=== PATIENT | male | born 1940 | race Hispanic/Latino ===

== ENCOUNTER 2019-09-05 13:29 | Emergency (ER) | payer MEDICARE ==
[~2019-09-05 13:29] MED LIST: CALCIUM PO; FINASTERIDE5 MG PO; FISH OIL PO; FLOMAX0.4 MG PO; GLUCOSAMINE1000 MG PO; VIT E PO
== END 2019-09-05 14:45 | disposition home or self-care (01) ==
LOC: ER 13:29
DX: S80.222A Blister (nonthermal), left knee, initial encounter (principal); Z96.652 Presence of left artificial knee joint
CPT/HCPCS: 99282

== ENCOUNTER → 2019-09-08 | Outpatient (CLI) | payer MEDICARE | LOC: RAD 15:03 | PROVIDERS: ATTEND Specialist | DX: R22.42 Localized swelling, mass and lump, left lower limb (principal) | CPT/HCPCS: 93971 ==

== ENCOUNTER → 2019-12-25 | Day surgery (SDC) | payer MEDICARE, OTHER ==
[2019-12-22 12:59] LABS: BASOPHILS % 0.4 % (0.0-1.0); EOSINOPHILS # (AUTO) 0.2 (0.0-0.4); EOSINOPHILS % 4.6 % (0.0-6.0); HEMATOCRIT 38.2 % (38.2-49.6); HEMOGLOBIN 13.2 g/dL (14.0-18.0); LYMPHOCYTES # (AUTO) 1.5 (1.0-3.2); LYMPHOCYTES % 32.7 % (18.0-39.1); MEAN CORPUSCULAR HEMOGLOBIN 33.2 pg (28-32); MEAN CORPUSCULAR HGB CONC 34.6 g/dL (31-35); MONOCYTES # (AUTO) 0.5 (0.2-0.8); MONOCYTES % 10.8 % (4.4-11.3); NEUTROPHILS # (AUTO) 2.3 (2.1-6.9); NEUTROPHILS % 51.3 % (38.7-80.0); PLATELET COUNT 137 x10e3/uL (140-360); RED BLOOD COUNT 3.98 x10e6/uL (4.3-5.7); RED CELL DISTRIBUTION WIDTH 13.2 % (11.7-14.4)
[~2019-12-25] MED LIST changes: +ASPIR 8181 MG PO; +HYOSCYAMINE 0.125 MG TAB ONE; +LIDOCAINE HCL 2% LOCAL INJ 5 ML SDV VIAL INJ ONE; +MIDAZOLAM HCL 2 MG/2 ML VIAL ONE; +PROPOFOL IV EMULSION 10 MG/ML 20 ML VIAL ONE; +VIT B12 PO; +VIT D3 PO
--- NOTE | 2019-12-25 08:52 | Operative Report ---
DATE OF PROCEDURE: 12/25/2019 SURGEON: Pancho Singer MD INDICATION FOR COLONOSCOPY: Surveillance colonoscopy, personal history of colon polyps. MEDICATIONS: The patient was done under MAC. Please see anesthesiologist's note. PROCEDURE IN DETAIL: With the patient in left lateral decubitus position, a flexible fiberoptic Olympus colonoscope was inserted into the rectum with ease and advanced all the way to the cecum. The scope was then withdrawn slowly. Mucosa overlying the cecum appeared to be within normal limits. Diverticular disease was noted to involve the ascending colon. Transverse, descending, sigmoid and rectum appeared to be within normal limits. The scope was then retroflexed into the distal rectum and small internal hemorrhoids were noted, none of which was actively bleeding. The scope was then straightened out, it was subsequently withdrawn. The patient tolerated the procedure well. IMPRESSION: 1. Diverticulosis, ascending colon. 2. Internal hemorrhoids, none actively bleeding. PLAN: Initiate high-fiber, low-fat diet. Initiate high-fiber supplement. The patient might benefit from a followup colonoscopy in 3 to 5 years. If no polyps on next colonoscopy, then no additional colonoscopy is needed to this patient. Pancho Singer MD [facility]/MER /[id number] cc: Pito Chapman MD
[2019-12-25 08:55] VITALS: BP 150/83
--- OUTSIDE RECORDS SUMMARY | 2019-12-25 10:35 | XMS REPORT | Continuity of Care Document ---
Author Author Kalpana Washburn [facility] [place] Address Unknown Phone Unavailable Care Team Providers Care Landscape Architect And Planner Name Role Phone [employer] Unavailable Un available Problems Problem Status Onset Date Classification Date Reported Comments Source M79.642 Active 12/03/2018 [facility] 831.0 - DISLOCAT SHOULD Active 05/31/2012 [facility] Medications No Data Provided for This Section Allergies, Adverse Reactions, Alerts No Known Medication Allergies Immunizations No Data Provided for This Section Results No Data Provided for This Section Pathology Reports No Data Provided for This Section Diagnostic Reports Report Value Date Source Knee 3 Views Bilateral DX CLIN ICAL INDICATION: - M25.561 Pain in right knee, M25.562 Pain in left knee COMPARISON: None. FINDINGS: The 3 views of the left knee show normal alignment without acute fracture or dislocation. Moderate to severe degenerative change is noted. There are no definite loose bodies. There is no joint effusion. There are no radiopaque foreign bodies. Vascular calcifications are noted. The 3 views of the right knee show normal alignment without acute fracture or dislocation. There is no joint effusion. There are no radiopaque foreign bodies. Moderate to severe degenerative change is seen, greatest in the medial compartment. Loose bodies seen posteriorly measuring 1.3 cm in greatest dimension. Vascular calcifications are seen. If there is further concern, recommend follow-up radiographs or MRI for complete assessment. IMPRESSION: No acute fracture or dislocation. Moderate to severe degenerative change. SL: TARIK 12/03/2018 [facility] Hand 2 views Bilateral DX Hand 2 views Bilateral DX CLINICAL HISTORY: - M79.642 Pain in left hand, M79.641 Pain in right hand FINDINGS: 3 views of the right hand and 3 views of left hand are submitted for review. There is no evidence for fracture or subluxation. There is decrease in joint space height in the interphalangeal joints, metacarpophalangeal joints and at the radiocarpal joint. Changes are worse in the right hand as compared to the left hand. There is mild radial subluxation at the DIP joint of the right 2nd digit. No definite erosions are visualized. Visualized bones demonstrate normal radiodensity. Vascular calcifications. 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 SL: [id number] 12/03/2018 [facility] Foot series DX Right Foot x-ra y series History: 75-year-old with right foot pain. Comparison: None. Findings: 1st MTP hallux morphology with narrowing of the joint space. The 1st MTP sesamoids are remodeled with marginal osteophytes. There is no fracture or acute bony injury. The meta tarsals appear intact. The midtarsal bones are unremarkable. The plantar arch is maintained. The calcaneus has a small inferior enthesopathy. The hindfoot is normal. Heavy atherosclerotic calcifications of the dorsalis pedis and posterior tibial arteries noted. Impression: No acute bone injury. 1st MTP hallux valgus morphology with os teoarthritic changes at MTP joint and interphalangeal joints. 12/08/2015 JANNA Ortiz Consultation Notes No Data Provided for This Section Discharge Summaries No Data Provided for This Section History and Physicals No Data Provided for This Section Vital Signs No Data Provided for This Section Encounters Location Location Details Encounter Type Encounter Number Reason For Visit Attending Provider ADM Date DC Date Status Source OD [id number] 831.0 - DISLOCAT SHOULD JACOB JUAREZ 05/31/2012 Active JANNA Ortiz [facility] [place] [facility] [id number] Jacob Juarez 12/08/2015 12/09/2015 JANNA Ortiz [facility] Outpatient [id number] Kristin Best 12/03/2018 12/04/2018 [facility] Procedures No Data Provided for This Section Assessment and Plan No Data Provided for This Section Plan of Care No Data Provided for This Section Social History Social History Date Source No data available for this section 12/04/2018 [facility] No data available for this section 12/09/2015 JANNA Ortiz Family History No Data Provided for This Section Advance Directives No Data Provided for This Section Functional Status No Data Provided for This Section
--- OUTSIDE RECORDS SUMMARY | 2019-12-25 10:35 | XMS REPORT | Summary of Care ---
Author Author [facility] Organization [facility] Address Unknown Phone Unavailable Encounter HQ Encntr_alivimal(FIN) [id number] Date(s): 12/03/18 - 12/03/18 [facility] [address] [place] [address]- [phone] Discharge Disposition: Home or Self Care Attending Physician: Kristin Best MD Vital Signs No data available for this section Problem List No data available for this section Allergies, Adverse Reactions, Alerts No data available for this section Medications No data available for this section Results No data available for this section Immunizations No data available for this section Procedures No data available for this section Social History No data available for this section Assessment and Plan No data available for this section
--- OUTSIDE RECORDS SUMMARY | 2019-12-25 10:35 | XMS REPORT ---
Author Author [facility] t Organization [facility] Address [address] [place] [address] Phone Unavailable Care Team Providers Care Rubber Stamp Die Inspector Name Role Phone JM SMITH, KINGSLEY PCP VALERIE JADE Attphys Unavailable Lakesha Best Attphys Alessia Juarez Attphys VALERIE JADE Admphyantonia Unavailable Payers Payer Name Policy Type Policy Number Effective Date Expiration Date [facility] [id number] 2019 00:00:00 [facility] Problems Condition Name Condition Details Condition Category Status Onset Date Resolution Date Last Treatment Date Treating Clinician Comments Source M79.642 M79. 642 Active 12/03/2018 [facility] Diagnosis Active 2018-12-03 13:37:00 2018-12-04 06:51:00 [facility] 831.0 - DISLOCAT SHOULD 831. 0 - DISLOCAT SHOULD Active 05/31/2012 [facility] [place] Diagnosis Active 2012-05-31 00:01:00 2012-05-31 12:41:00 [facility] [place] Allergies, Adverse Reactions, Alerts This patient has no known allergies or adverse reactions. Social History Social Habit Start Date Stop Date Quantity Comments Source Social History 2015-12-09 04:59:00 2015-12-09 04:59:00 [facility] Medications Ordered Medication Name Filled Medication Name Start Date Stop Da te Current Medication? Ordering Clinician Indication Dosage Frequency Signature (SIG) Comments Components Source Calcium Calcium Yes 600 Daily [facility] Finasteride 5 Mg Tablet Finasteride 5 Mg Tablet Yes 5 Daily [facility] Fish Oil Fish Oil Yes 300 Daily [facility] Glucosamine Sulfate 2KCL (Glucosamine) 1,000 Mg Tablet Glucosamine Sulfate 2KCL (Glucosamine) 1,000 Mg Tablet Yes Daily [facility] Tamsulosin Hcl (Flomax*) 0.4 Mg Cap Tamsulosin Hcl (Flomax*) 0.4 Mg C ap Yes .4 Daily [facility] Vit E Vit E Yes Daily [facility] Procedures Procedure Date / Time Performed Performing Clinician Micaela reynoso Total replacement of knee joint 2019-09-01 00:00:00 RADHA JADE [facility] X-ray of chest, two views 2019-08-29 00:00:00 VALERIE JADE CH I [facility] Encounters Start Date/Time End Date/Time Encounter Type Admission Type [facility] Care Department Encounter ID Source 2019-09-05 13:29:00 2019-09-05 14:45:00 Departed Emergency Room [facility] [id number] [facility] 2019-09-01 09:40:00 2019-09-02 13:30:00 Discharged Inpatient (obs) 3 VALERIE JADE [facility] [id number] [facility] 2018-12-03 18:36:00 2018-12-04 04:59:00 Outpatient [facility] [id number] [facility] 2018-12-03 13:36:00 2018-12-03 23:59:00 Outpatient Estephania Andrei chiquis Crowder [facility] [id number] 2018-12-03 13:36:00 2018-12-03 13:36:00 Outpatient [facility] [address] [facility] 2015-12-08 17:05:00 2015-12-09 04:59:00 Outpt Diag Services [facility] Outpatient [facility] - [place] [id number] [facility] [place] 2015-12-08 12:05:00 2015-12-08 23:59:00 Outpatient Jacob Juarez [facility] [id number] 2012-05-31 12:30:00 2012-05-31 12:30:00 OD [facility] [id number] [facility] Results Test Description Test Time Test Comments Results Result Comments Source Hemoglobin 2019-09-02 05:40:00 Test Item Hemoglobin (test code = 07662-9) 11.4 14.0-18.0 [facility]2020-01-28 05:40:00* Test Item Value Reference Range Interpretation Comments Hematocrit (test code = 4544-3) 34.0 38.2-49.6 [facility]-2 PCAFM1988-62-04 10:36:00 [facility] [address] [place] [address] Patient Name: DENITA DUGGAN MR #: [id number] : 1940 Age/Sex: 79/M Req #: [id number] Adm Physician: VALERIE JADE MD Ordered by: VALERIE JADE MD Report #: [id number] Location: PACU V [facility] Procedure: [id number] DX/ KNEE LEFT 1-2 VIEWS Exam Date: 09/01/19 Exam Time: 1 004 REPORT STATUS: Signed EXAMIN ATION: KNEE LEFT 1-2 VIEWS INDICATION: Postoperative COMPARISON: None FINDINGS: Portable AP and lateral images of the left knee de monstrate immediate postoperative findings of left total knee replacement. Ali gnment appears anatomic. No unexpected fracture. Postoperative subcutaneous so ft tissue emphysema. Small joint effusion. Surgical skin tori along the ant erior knee. Atherosclerotic arterial calcifications. IMPRESSION: Anato nitin alignment status post left total knee replacement. Signed by: Miguel Angel donahue MD on 09/01/2019 10:37 AM Dictated By: MIGUEL ANGEL COTTO MD Electronically Si gned By: MIGUEL ANGEL COTTO MD on 09/01/19 1037 Transcribed By: MARLON on 09/01/19 103 7 COPY TO: VALERIE JADE MD CHEST 2 [id number] 11:13:00 [place] [address] Patient Name: DENITA DUGGAN MR #: [id number] : 1940 Age/Sex: 79/M Req #: [id number] Adm Physician: Ordered by: VALERIE JADE MD Report #: [id number] Location: OR Room/Bed: Procedure: [id number] DX/C HEST 2 VIEWS Exam Date: 08/29/19 Exam Time: 1051 REPORT STATUS: Signed Chest, 2 view s, 08/29/2019. History: Preop, left knee surgery. Comparison: N one available. Findings: The cardiomediastinal silhouette and pulmonary vas culature are within normal limits. There is tortuosity of the thoracic aorta. There is biapical pleural thickening. The lungs are clear without evidence of consolidation or pleural effusion. Degenerative changes are present throughout the thoracic spine. There are no acute osseous or soft tissue abnormalities. Impression: No acute cardiopulmonary abnormality. Signed by: Miguel Ángel Aldridge on 08/29/2019 11:13 AM Dictated By: MIGUEL ÁNGEL ALDRIDGE MD 12 Transcribed By: MARLON on 1112 COPY TO: VALERIE JADE MD White Blood [id number] 11:00:00* Test Item Value Reference Range Interpretation Comments White Blood Count (test code = 6690-2) 4.15 4.8-10.8 [facility] Ddqoh8359-73-54 11:00:00* Test Item Value Reference Range Interpretation Comments Red Blood Count (test code = 789-8) 4.06 4.3-5.7 [facility] Hospital[facility] Corpuscular [id number] 11:00:00* Test Item Value Reference Range Interpretation Comments Mean Corpuscular Volume (test code = 787-2) 101.0 81-99 [facility] Corpuscular Xkbvclhxqy9828-76-99 11:00:00* Test Item Value Reference Range Interpretation Comments Mean Corpuscular Hemoglobin (test code = 785-6) 35.5 28-32 [facility] Corpuscular Hemoglobin Concent 2019-08-29 11:00:00* Test Item Value Reference Range Interpretation Comments Mean Corpuscular Hemoglobin Concent (test code = 786-4) 35.1 31-35 [facility] Cell Distribution [id number] 11:00:00* Test Item Value Reference Range Interpretation Comments Red Cell Distribution Width (test code = 02451-5) 13.8 11.7 -14.4 [facility] HospitalPlatelet Wspha8237-34-02 11:00:00* Test Item Value Reference Range Interpretation Comments Platelet Count (test code = 777-3) 138 140-360 [facility] HospitalNeutrophils (%) (Auto)2019-08-29 11:00:00 * Test Item Value Reference Range Interpretation Comments Neutrophils (%) (Auto) (test code = 65549-8) 57.9 38.7-80.0 [facility] HospitalLymphocytes (%) (Auto)2019-08-29 11:00:00 * Test Item Value Reference Range Interpretation Comments Lymphocytes (%) (Auto) (test code = 736-9) 26.5 18.0-39.1 [facility] HospitalMonocytes (%) (Auto)2019-08-29 11:00:00* Test Item Value Reference Range Interpretation Comments Monocytes (%) (Auto) (test code = 5905-5) 10.6 4.4-11.3 [facility] HospitalEosinophils (%) (Auto)2019-08-29 11:00:00 * Test Item Value Reference Range Interpretation Comments Eosinophils (%) (Auto) (test code = 713-8) 4.1 0.0-6.0 [facility] HospitalBasophils (%) (Auto)2019-08-29 11:00:00* Test Item Value Reference Range Interpretation Comments Basophils (%) (Auto) (test code = 706-2) 0.7 0.0-1.0 [facility] HospitalIM GRANULOCYTES %2019-08-29 11:00:00* Test Item Value Reference Range Interpretation Comments IM GRANULOCYTES % (test code = IM GRANULOCYTES %) 0.2 0.0- 1.0 [facility] HospitalNeutrophils # (Auto)2019-08-29 11:00:00* Test Item Value Reference Range Interpretation Comments Neutrophils # (Auto) (test code = 751-8) 2.4 2.1-6.9 [facility] HospitalLymphocytes # (Auto)2019-08-29 11:00:00* Test Item Value Reference Range Interpretation Comments Lymphocytes # (Auto) (test code = 29666-6) 1.1 1.0-3.2 [facility] HospitalMonocytes # (Auto)2019-08-29 11:00:00* Test Item Value Reference Range Interpretation Comments Monocytes # (Auto) (test code = 742-7) 0.4 0.2-0.8 [facility] HospitalEosinophils # (Auto)2019-08-29 11:00:00* Test Item Value Reference Range Interpretation Comments Eosinophils # (Auto) (test code = 711-2) 0.2 0.0-0.4 [facility] HospitalBasophils # (Auto)2019-08-29 11:00:00* Test Item Value Reference Range Interpretation Comments Basophils # (Auto) (test code = 704-7) 0.0 0.0-0.1 [facility] HospitalAbsolute Immature Granulocyte (auto 2019-08-29 11:00:00* Test Item Value Reference Range Interpretation Comments Absolute Immature Granulocyte (auto (destiny t code = Absolute Immature Granulocyte (auto) 0.01 0-0.1 [facility]
--- OUTSIDE RECORDS SUMMARY | 2019-12-25 10:35 | XMS REPORT | Summary of Care ---
Author Author [facility] Organization [facility] Address Unknown Phone Unavailable Encounter HQ Encntr_alias(FIN) [id number] Date(s): 12/08/15 - 12/08/15 [facility] Outpatient Imaging - [place] [address] [place], [place] [address] [phone] Discharge Disposition: Home Attending Physician: Jacob Juarez MD Vital Signs No data available for [...]
== END | disposition home or self-care (01) ==
LOC: OR 06:21
PROVIDERS: ATTEND Internal Medicine Gastroenterology
DX: Z09 Encounter for follow-up examination after completed treatment for conditions other than malignant neoplasm (principal); Z86.010 Personal history of colon polyps; K57.30 Diverticulosis of large intestine without perforation or abscess without bleeding; K64.8 Other hemorrhoids; K59.00 Constipation, unspecified; I10 Essential (primary) hypertension; Z01.810 Encounter for preprocedural cardiovascular examination; Z01.812 Encounter for preprocedural laboratory examination; Z11.59 Encounter for screening for other viral diseases; Z79.82 Long term (current) use of aspirin; Z68.24 Body mass index [BMI] 24.0-24.9, adult
CPT/HCPCS: 36415; 85025; 87635; 93005; G0121; J2001; J2250; J2704; 45378